=== PATIENT | male | born 1985 | race Asian ===

== ENCOUNTER → 2019-08-29 11:44 | Day surgery (SDC) | payer OTHER ==
--- NOTE | 2019-08-27 12:52 | HP ---
HISTORY AND PHYSICAL: DATE OF ADMISSION/SURGERY: 08/29/19 DATE OF OFFICE VISIT: 08/27/19 SURGEON: Consuelo Mccall MD.* (DICTATED BY SHEKHAR TAMEZ) PROCEDURE: Right knee arthroscopy with partial meniscectomy, possible chondroplasty, possible synovectomy, and possible plica excision. CHIEF COMPLAINT: Right knee pain. HISTORY OF PRESENT ILLNESS: Mr. Artis is a 33-year-old gentleman with complaints of right knee pain and an MRI confirms a medial meniscus tear. He has elected to proceed with right knee arthroscopy. PAST MEDICAL HISTORY: Denies. PAST SURGICAL HISTORY: Right knee ACL reconstruction. CURRENT MEDICATIONS: None. ALLERGIES: None. FAMILY HISTORY: Denies. SOCIAL HISTORY: He is a 33-year-old gentleman. He occasionally uses E- cigarettes. He denies the use of drugs and uses occasional alcohol. REVIEW OF SYSTEMS: A complete 14-point review of systems was reviewed with the patient. It is all negative or noncontributory. He denies history of DVT, PE, hepatitis, HIV or anesthesia problems. PHYSICAL EXAMINATION GENERAL: He is well developed, well nourished, in no acute distress. VITAL SIGNS: He stands 5 feet 8 inches tall, weighs 160 pounds. His blood pressure is 118/70, his heart rate is 70. HEENT: Normocephalic, atraumatic. NECK: Supple. No palpable lymph nodes. PULMONARY: Lungs are clear to auscultation bilaterally. CARDIO: Regular rate and rhythm. Strong S1, S2. ABDOMEN: Soft, nontender, nondistended. NEUROLOGIC: He is alert and oriented x3. MUSCULOSKELETAL: Right lower extremity: Skin is intact. There are no open wounds or abrasions. There is a [id number] effusion of the right knee. Range of motion is 5 to 125 degrees of flexion. Positive Apley's and Laura' s. Negative Felix's. He has 2+ dorsalis pedis pulse. He is able to dorsiflex and plantarflex and has intact sensation. ASSESSMENT AND PLAN: Mr. Artis is a 33-year-old gentleman with complaints of right knee pain and an MRI confirms a medial meniscus tear. He has elected to proceed with right knee arthroscopy with partial meniscectomy, possible chondroplasty, possible synovectomy, and possible plica excision. The surgery is scheduled for 08/29/[address] Mccall discussed the risks and benefits of the surgery at today's visit and all of his questions were answered. He will follow up with Dr. Mccall 2 weeks after the surgery. SHEKHAR TAMEZ [id number]/[facility] #: [id number] RACHEL
[~2019-08-29 11:44] MED LIST: Atropine 1MG/ML INJ* 1 ML VIAL ONE; Buffered Lidocaine 1% SYRIN* 1 ML/SYRINGE INTRADERM ONE; Bupivacaine 0.5% SDV PF* 30ML VIAL ONE; Dexamethasone IV* 4 MG/ML 1 ML (4 MG) IV SLOW PU ONE; Dexamethasone IV* 4 MG/ML 1 ML (4 MG) ONE; DiMENhydriNATE IV* 50 MG/ML VIAL IV PUSH PRN; EPINEPHRINE 1 MG/ML 1 ML VIAL ONE; Famotidine IV* 10 MG/ML 2 ML (20 mg) IV ONE; Famotidine IV* 10 MG/ML 2 ML (20 mg) ONE; Glycopyrrolate IV* 0.2 MG/ML 1 ML VIAL ONE; Ketorolac INJ* 30 MG/ML 1 ML VIAL ONE; Lactated Ringers 1000 ML Bag* 1,000 ML IV SCH; Lidocaine 2% PF * 5 ML VIAL ONE; Midazolam* 1 MG/ML 2 ML VIAL (2 MG) ONE; Naloxone* 0.4 MG/ML 1 ML VIAL IV PRN; Ondansetron INJ* 2 MG/ML VIAL IV PRN; Ondansetron INJ* 2 MG/ML VIAL ONE; Propofol* 10 MG/ML 20 ML BTL ONE; ROPIVACAINE 5 MG/ML 30 ML BTL (0.5%) ONE; Ropivacaine 0.2% * 2 MG/ML VIAL ONE; Scopolamine 1.5 mg* PATCH TRANSDERM SCH; ceFAZolin 2 GM PREMIX in ORs 2 GM/50 ML BAG ONE; fentaNYL* 50 MCG/ML 2 ML VIAL (100 MCG VIAL) IV PRN; fentaNYL* 50 MCG/ML 5 ML VIAL (250 MCG VIAL) ONE; methylPREDNISolone ACETATE 80* 80 MG/ML 1 ML VIAL ONE; oxyCODONE/Acetamin 5/325 MG* TAB PO PRN
[2019-08-29 14:31] VITALS: BP 122/68
--- NOTE | 2019-08-30 00:10 | OP ---
DATE OF OPERATION: 08/29/19 [facility] DATE OF : 89 SURGEON: Consuelo Mccall MD. GENERAL ACCOUNTING MANAGER: SHEKHAR Tyler. Ms. Horowitz did help throughout the procedure with preparation of the leg, wound retraction, manipulation of the knee and wound closure. ANESTHESIOLOGIST: Dr. Ledesma. ANESTHESIA: General. PRE-OP DIAGNOSIS: Right knee medial meniscal tear. POST-OP DIAGNOSIS: Right knee medial meniscal tear. OPERATIVE PROCEDURE: Right knee arthroscopy with partial medial meniscectomy. BRIEF HISTORY/INDICATIONS: Mr. Artis is a 33-year-old gentleman who injured his right knee playing sports. He developed mechanical symptoms along the medial joint line. MRI confirmed that his prior ACL reconstruction was intact; however , he had a significant tear in the medial meniscus posterior horn. He failed conservative treatment and elected to undergo right knee arthroscopy due to continued pain. Informed consent was obtained from the patient. He under-stood the risks of surgery included, but were not limited to bleeding, infection, damage to nearby structures, continued pain, need for further surgery, re-tear of the meniscus, progression of arthritis, stroke, heart attack, blood clot and . He wished to proceed. SPECIMEN: None. COMPLICATIONS: None. ESTIMATED BLOOD LOSS: . INTRAOPERATIVE FINDINGS: Intraoperatively, the patient was noted to have a long linear type tear along the posterior body and into the posterior horn of the medical meniscus. This is in the white-red zone. This meniscal tear did displace anteriorly into the joint space. He was noted to have moderate degenerative changes in the medial compartment along the medial tibial plateau. His ACL graft was intact and without laxity. DESCRIPTION OF PROCEDURE: Mr. Artis was identified in the preanesthesia unit. His right lower extremity was marked as the correct operative side. Informed consent was signed and placed in the chart. The patient was taken to the operating room and placed under anesthesia without difficulty. The right lower extremity was prepped and draped in the usual sterile fashion. Preop time-out was made to correctly identify the patient, side, and site. Appropriate perioperative antibiotics were given within 1 hour of the incision. A standard 0.5 cm anterolateral portal incision was made with a 10 blade and carried down to the capsule. Trocar was introduced. As soon as the light and water sources were turned on, there was immediate visualization of the suprapatellar pouch. Suprapatellar pouch showed no obvious abnormality. Patellofemoral compartment showed very minimal degenerative changes. Medial gutter showed no loose body or plica. Medial compartment showed some grade 2 and 3 Outerbridge cartilage changes, mainly affecting the medial tibial plateau posteriorly. There was a visible posterior medial meniscus tear. ACL graft appeared to be intact. PCL appeared to be intact. The knee was placed in the [id number] position. Lateral compartment showed no significant degenerative changes. There was no obvious meniscal tear. The lateral gutter had no abnormality or loose body. Under direct visualization, a medial portal incision was made with a 10-blade. A probe was introduced into the knee joint and a second tour was performed. The posterior medial meniscus tear was a long linear tear along the body of the posterior horn of the meniscus. This tear did displace anteriorly into the joint line. The straight biter was introduced and partial medial meniscectomy was performed. The torn fragment was carefully excised. Further probing of the meniscus showed no additional tears. Shaver and radiofrequency ablation wand were used to further smooth the edge of the meniscus. It was noted that there was some significant degeneration of the cartilage along the posterior medial tibial plateau. This were grade 2 and 3 Outerbridge cartilage changes. Otherwise in the knee joint, there were minimal degenerative changes noted. The knee was copiously irrigated with sterile saline. All instruments were carefully removed. The incisions were closed using 3-0 nylon suture. Sterile Xeroform, 4x4s, and Webril were used to cover the incision. Phil wrap and cold pack were placed over this. The patient's anesthesia was reversed without difficulty. He was taken to the PACU in stable condition. Intended weightbearing will be weightbearing as tolerated. Intended DVT prophylaxis will be aspirin. He will follow up in 2 weeks's time for suture removal. [id number]/[facility] #: [id number] RACHEL
== END | disposition home or self-care (01) ==
LOC: OREAST 11:44
PROVIDERS: ATTEND Orthopaedic Surgery Adult Reconstructive Orthopaedic Surgery
DX: S83.241A Other tear of medial meniscus, current injury, right knee, initial encounter (principal); X58.XXXA Exposure to other specified factors, initial encounter; Y93.79 Activity, other specified sports and athletics; Y92.9 Unspecified place or not applicable; F17.290 Nicotine dependence, other tobacco product, uncomplicated
CPT/HCPCS: J0461; J0690; J1040; J1100; J1885; J2250; J2405; J2704; J2795; J3010; J3490